=== PATIENT | male | born 1970 | race African-American/Black ===

== ENCOUNTER 2016-09-29 07:06 | Emergency (ER) | payer MEDICAID ==
[~2016-09-29] VITALS: Ht 167.6 cm; Wt 95.2 kg
[~2016-09-29 07:06] MED LIST: ALBUTEROL INH; [UNRECOGNIZED DRUG - CODE]
[2016-09-29 08:30] VITALS: BP 132/87
== END 2016-09-29 08:33 | disposition home or self-care (01) ==
LOC: EMS 07:08
DX: Z48.02 Encounter for removal of sutures (principal); Z88.6 Allergy status to analgesic agent
CPT/HCPCS: 99281

== ENCOUNTER 2017-03-28 11:54 | Emergency (ER) | payer SELFPAY ==
[~2017-03-28] VITALS: Ht 167.6 cm; Wt 86.4 kg
[2017-03-28] MEDS ORDERED: ACETAMINOPHEN 500 MG TABLET PO ONE (13:30)
[2017-03-28 13:55] VITALS: BP 122/74
== END 2017-03-28 14:58 | disposition home or self-care (01) ==
LOC: EMS 11:55
DX: S80.01XA Contusion of right knee, initial encounter (principal); S90.122A Contusion of left lesser toe(s) without damage to nail, initial encounter; F12.90 Cannabis use, unspecified, uncomplicated; Z88.6 Allergy status to analgesic agent; V49.49XA Driver injured in collision with other motor vehicles in traffic accident, initial encounter; Y93.01 Activity, walking, marching and hiking; Y92.89 Other specified places as the place of occurrence of the external cause; Y99.8 Other external cause status
CPT/HCPCS: 99284